=== PATIENT | female | born 1975 | race African-American/Black ===

== ENCOUNTER 2022-01-27 10:25 | Emergency (ER) | payer SELFPAY ==
--- NOTE | 2022-01-27 11:29 | EDPHYS ---
Physician Documentation [facility] Name: Jeanine Valero Age: 46 yrs Sex: Female : 1975 Arrival Date: 01/27/2022 Time: 10:29 Bed DIS5 Private MD: ED Physician Delbert Bain HPI: 01/27 11:32 This 46 yrs old Black Female presents to ER via Ambulatory with complaints of snw Laceration - ponce. 11:32 The patient presents with an injury. The complaints affect the anterior aspect of right snw ankle. Context: The problem was sustained at home, resulted from the patient tripping, shower edge, the patient can fully bear weight, the patient is able to ambulate, without difficulty. Onset: The symptoms/episode began/occurred suddenly, 11 o'clock last pm (24 hr ago). Modifying factors: The symptoms are alleviated by nothing. Associated signs and symptoms: The patient has no apparent associated signs or symptoms. Treatment prior to arrival includes: pt tried to glue area, awoke with bandage full of blood. Severity of symptoms: At their worst the symptoms were very mild, mild. The patient has not experienced similar symptoms in the past. It is unknown whether or not the patient has recently seen a physician. utd on immun. Historical: - Allergies: 11:25 Percocet; ap3 - Home Meds: 11:25 None [Active]; ap3 - PMHx: 11:25 None; ap3 - Immunization history:: Client reports receiving the 2nd dose of the Covid vaccine, Last tetanus immunization: up to date. - Social history:: Smoking status: Patient denies any tobacco usage or history of. ROS: 11:30 Constitutional: Negative for fever, chills, and weight loss, Eyes: Negative for injury, snw pain, redness, and discharge, ENT: Negative for injury, pain, and discharge, Neck: Negative for injury, pain, and swelling, Cardiovascular: Negative for chest pain, palpitations, and edema, Respiratory: Negative for shortness of breath, cough, wheezing, and pleuritic chest pain, Abdomen/GI: Negative for abdominal pain, nausea, vomiting, diarrhea, and constipation, Back: Negative for injury and pain, : Negative for injury, bleeding, discharge, and swelling, MS/Extremity: Negative for injury and deformity, Neuro: Negative for headache, weakness, numbness, tingling, and seizure. 11:30 Skin: Positive for laceration(s), of the anterior aspect of right ankle. Exam: 11:31 Constitutional: This is a well developed, well nourished patient who is awake, alert, snw and in no acute distress. Head/Face: Normocephalic, atraumatic. Eyes: Pupils equal round and reactive to light, extra-ocular motions intact. Lids and lashes normal. Conjunctiva and sclera are non-icteric and not injected. Cornea within normal limits. Periorbital areas with no swelling, redness, or edema. Neck: Trachea midline, no thyromegaly or masses palpated, and no cervical lymphadenopathy. Supple, full range of motion without nuchal rigidity, or vertebral point tenderness. No Meningismus. Chest/axilla: Normal chest wall appearance and motion. Nontender with no deformity. No lesions are appreciated. Cardiovascular: Regular rate and rhythm with a normal S1 and S2. No gallops, murmurs, or rubs. Normal PMI, no JVD. No pulse deficits. Respiratory: Lungs have equal breath sounds bilaterally, clear to auscultation and percussion. No rales, rhonchi or wheezes noted. No increased work of breathing, no retractions or nasal flaring. Abdomen/GI: Soft, non-tender, with normal bowel sounds. No distension or tympany. No guarding or rebound. No evidence of tenderness throughout. Back: No spinal tenderness. No costovertebral tenderness. Full range of motion. MS/ Extremity: Pulses equal, no cyanosis. Neurovascular intact. Full, normal range of motion. Neuro: Awake and alert, GCS 15, oriented to person, place, time, and situation. Cranial nerves II-XII grossly intact. Motor strength 5/5 in all extremities. Sensory grossly intact. Cerebellar exam normal. Normal gait. Psych: Awake, alert, with orientation to person, place and time. Behavior, mood, and affect are within normal limits. 11:31 Skin: Appearance: normal except for affected area, injury, laceration(s), the wound is approximately 3 cm(s), with a depth of 2 cm(s), of the anterior aspect of right ankle. Vital Signs: 11:23 BP 134 / 90; Pulse 88; Resp 17; Temp 98.4; Pulse Ox 100% on R/A; Weight 86.18 kg; ap3 Height 5 ft. 4 in. (162.56 cm); 11:23 Body Mass Index 32.61 (86.18 kg, 162.56 cm) ap3 MDM: 11:28 Patient medically screened. snw 11:30 Data reviewed: vital signs, nurses notes. Data interpreted: Pulse oximetry: is 100 %. snw Interpretation: normal. Counseling: I had a detailed discussion with the patient and/or guardian regarding: the historical points, exam findings, and any diagnostic results supporting the discharge/admit diagnosis, the need for outpatient follow up, to return to the emergency department if symptoms worsen or persist or if there are any questions or concerns that arise at home. Special discussion: I discussed in detail with the patient the higher chance of wound infection based on his presenting history. Based on the history and exam findings, there is no indication for further emergent testing or inpatient evaluation. I discussed with the patient/guardian the need to see the primary care provider for further evaluation of the symptoms. 01/27 11:26 Order name: Wound Care: clean, dry, steri-strip and dress, and place in walking boot snw 01/27 11:26 Order name: Walking boot snw Administered Medications: 11:31 Drug: Doxycycline 100 mg Route: PO; ap3 13:02 Follow up: Response: No adverse reaction ss Disposition: 19:18 Co-signature as Attending Physician, Delbert Bain MD I agree with the assessment and rt plan of care. Disposition Summary: 01/27/22 11:28 Discharge Ordered Location: Home snw Condition: Stable snw Diagnosis - Laceration without foreign body of ankle - PONCE snw - delayed wound closure snw Followup: snw - With: Emergency Department - When: As needed - Reason: Worsening of condition Followup: snw - With: Private Physician - When: 2 - 3 days - Reason: Recheck today's complaints, Continuance of care, Re-evaluation by your physician Discharge Instructions: - Discharge Summary Sheet snw - Delayed Wound Closure snw - Wound Care, Adult snw Forms: - Medication Reconciliation Form snw - Thank You Letter snw - Antibiotic Education snw - Prescription Opioid Use snw Prescriptions: - Hibiclens - wash 1 application by TOPICAL route 2 times per day for 7 days; 1 bottle; snw Refills: 0, Product Selection Permitted - Doxycycline Hyclate 100 mg Oral Tablet - take 1 tablet by ORAL route every 12 hours; 20 tablet; Refills: 0, Product snw Selection Permitted Signatures: Lashanda Lobato, VALENTIN-C GEOLOGY ASSOCIATE-Csnw Karyna Garcia RN RN ap3 Delbert Bain MD MD rt Marilee Anders RN ss
--- NOTE | 2022-01-27 11:29 | ER ---
Nurse's Notes [facility] Name: Jeanine Valero Age: 46 yrs Sex: Female : 1975 Arrival Date: 01/27/2022 Time: 10:29 Bed DIS5 Private MD: Diagnosis: Laceration without foreign body of ankle-PATEL;delayed wound closure Presentation: 01/27 11:23 Chief complaint: Patient states: she fell last night getting out of the shower at ap3 around 11pm and got a laceration to her right lower extremity. Coronavirus screen: At this time, the client does not indicate any symptoms associated with coronavirus-19. Ebola Screen: No symptoms or risks identified at this time. Complicating Factors: elapsed time. Initial Sepsis Screen: Does the patient meet any 2 criteria? No. Patient's initial sepsis screen is negative. Does the patient have a suspected source of infection? No. Patient's initial sepsis screen is negative. Risk Assessment: Do you want to hurt yourself or someone else? Patient reports no desire to harm self or others. Onset of symptoms was January 26, 2022 at 21:00. 11:23 Method Of Arrival: Ambulatory ap3 11:23 Acuity: FLORESITA 4 ap3 Triage Assessment: 11:26 General: Appears in no apparent distress. Behavior is calm, cooperative. Pain: Denies ap3 pain. Neuro: Level of Consciousness is awake, alert, obeys commands, Oriented to person, place, time. Cardiovascular:. Respiratory: Airway is patent Respiratory effort is even, unlabored, Respiratory pattern is regular, symmetrical. Injury Description: Laceration sustained to anterior aspect of right ankle is jagged, not bleeding, was sustained 12-24 hours ago. is bleeding no active bleeding noted. Historical: - Allergies: 11:25 Percocet; ap3 - Home Meds: 11:25 None [Active]; ap3 - PMHx: 11:25 None; ap3 - Immunization history:: Client reports receiving the 2nd dose of the Covid vaccine, Last tetanus immunization: up to date. - Social history:: Smoking status: Patient denies any tobacco usage or history of. Screenin:27 Abuse screen: Denies threats or abuse. Nutritional screening: No deficits noted. ap3 Tuberculosis screening: No symptoms or risk factors identified. Fall Risk None identified. Assessment: 11:27 Musculoskeletal:. ap3 Vital Signs: 11:23 BP 134 / 90; Pulse 88; Resp 17; Temp 98.4; Pulse Ox 100% on R/A; Weight 86.18 kg; ap3 Height 5 ft. 4 in. (162.56 cm); 11:23 Body Mass Index 32.61 (86.18 kg, 162.56 cm) ap3 ED Course: 10: Patient arrived in ED. as 10:39 Lashanda Lobato FNP-C is [facility]. snw 10:39 Delbert Bain MD is Attending Physician. snw 11:25 Triage completed. ap3 11:27 Arm band placed on left wrist. ap3 11:27 Patient has correct armband on for positive identification. ap3 13:02 Marilee Anders, REA is Primary Nurse. ss 13:03 No provider procedures requiring assistance completed. Patient did not have IV access ss during this emergency room visit. Administered Medications: 11: Drug: Doxycycline 100 mg Route: PO; ap3 13:02 Follow up: Response: No adverse reaction ss Outcome: 11:28 Discharge ordered by . snw 13:03 Discharged to home ambulatory. ss 13:03 Condition: good 13:03 Discharge instructions given to patient, Instructed on discharge instructions, follow up and referral plans. Demonstrated understanding of instructions, follow-up care, medications. 13:04 Patient left the ED. ss Signatures: Lashanda Lobato FNP-C HEAD LOADER-Csnw Nuvia Barker as Marilee Anders RN RN Karyna Garcia RN RN ap3
[2022-01-27] MEDS ORDERED: DOXYCYCLINE 100 MG CAP PO ONE (11:31)
[2022-01-27 14:00] VITALS: BP 134/90; TEMP 98.4; O2SAT 100
== END 2022-01-27 13:04 | disposition home or self-care (01) ==
LOC: ER 10:25
DX: S91.011A Laceration without foreign body, right ankle, initial encounter (principal)
CPT/HCPCS: 99283